=== PATIENT | male | born 2000 | race Caucasian/White ===

== ENCOUNTER 2020-07-28 19:16 | Emergency (ER) | payer BC ==
--- NOTE | 2020-07-28 20:02 | RAD ---
LEFT ELBOW FOUR VIEWS: 07/28/20 HISTORY: Elbow injury. There is no signs of fracture, dislocation or joint effusion. IMPRESSION: Negative left elbow. POS: OFF
[2020-07-28] MEDS ORDERED: Acetaminophen 500 MG TAB ONE (22:09)
== END 2020-07-28 22:20 | disposition home or self-care (01) ==
LOC: ERS 19:16
DX: S09.90XA Unspecified injury of head, initial encounter (principal); S50.02XA Contusion of left elbow, initial encounter; S80.812A Abrasion, left lower leg, initial encounter; S80.811A Abrasion, right lower leg, initial encounter; V43.52XA Car driver injured in collision with other type car in traffic accident, initial encounter